=== PATIENT | male | born 1995 | race Caucasian/White ===

== ENCOUNTER 2019-03-07 13:36 | Emergency (ER) | payer BC ==
[~2019-03-07] VITALS: Ht 188 cm; Wt 121.6 kg
[~2019-03-07 13:36] MED LIST: ACET-141 PO; BEN50 PO; CETI10TA19 PO; NO MEDS
[2019-03-07 13:57] VITALS: BP 128/69; PULSE 63; RESP 16; Ht 188 cm; Wt 121.6 kg
== END 2019-03-07 14:12 | disposition home or self-care (01) ==
LOC: E/R 13:36
DX: T63.441A Toxic effect of venom of bees, accidental (unintentional), initial encounter (principal)
CPT/HCPCS: 99282